=== PATIENT | male | born 1995 | race African-American/Black ===

== ENCOUNTER 2017-12-04 21:36 | Emergency (ER) | payer MEDICAID ==
[2017-12-04 21:51] VITALS: BP 139/65
[2017-12-04] MEDS: Ketorolac 30 MG/ML SDV IM ONE (22:09)
--- NOTE | 2017-12-04 22:12 | EDM.PDOC ---
ED HPI GENERAL MEDICAL PROBLEM - General Chief Complaint: Lower Extremity Injury/Pain Stated Complaint: right ankle pain Time Seen by Provider: 12/04/17 21:44 Source of Information: Reports: Patient History Limitations: Reports: No Limitations - History of Present Illness INITIAL COMMENTS - FREE TEXT/NARRATIVE: Patient comes in this evening with complaints of right ankle pain. He was playing basketball when he says that he thought he heard a pop in the right ankle. He did come in on crutches and the ankle is quite swollen. He is able to move the extremity but it is somewhat limited due to pain and swelling. Has no other complaints tonight he did not lose consciousness. Onset: Today, Sudden Location: Reports: Lower Extremity, Right Quality: Reports: Pressure, Sharp Severity: Moderate Improves with: Reports: Cold Therapy Associated Symptoms: Reports: No Other Symptoms Right Ankle Pain Score (Numeric/FACES): 7 - Related Data Allergies Allergy/AdvReac Type Severity Reaction Status Date / Time No Known Allergies Allergy Verified 12/04/17 21:48 Home Meds: Home Meds . [No Known Home Meds] 07/21/16 [History] Past Medical History - Past Health History Medical/Surgical History: Denies Medical/Surgical History - Past Surgical History Musculoskeletal Surgical History: Reports: Other (See Below) Other Musculoskeletal Surgeries/Procedures:: meniscus surgery, hand surgery Social & Family History - Family History Family Medical History: Noncontributory - Tobacco Use Smoking Status *Q: Never Smoker Second Hand Smoke Exposure: No - Caffeine Use Caffeine Use: Reports: None Review of Systems - Review of Systems Review Of Systems: See Below Constitutional: Reports: No Symptoms Eyes: Reports: No Symptoms Ears: Reports: No Symptoms Nose: Reports: No Symptoms Mouth/Throat: Reports: No Symptoms Respiratory: Reports: No Symptoms Cardiovascular: Reports: No Symptoms GI/Abdominal: Reports: No Symptoms Genitourinary: Reports: No Symptoms Musculoskeletal: Reports: Foot Pain, Joint Pain, Joint Swelling (right ankle) Skin: Reports: No Symptoms Neurological: Reports: No Symptoms Psychiatric: Reports: No Symptoms ED EXAM, GENERAL - Physical Exam Exam: See Below Exam Limited By: No Limitations General Appearance: Alert, WD/WN, Mild Distress Peripheral Pulses: 2+: Posterior Tibial (L), Posterior Tibial (R), Dorsalis Pedis (L), Dorsalis Pedis (R) Extremities: Limited Range of Motion (right ankle has reduced ROM, significant swelling to medial malleolus) Neurological: Alert, Oriented, CN II-XII Intact, Normal Cognition, Normal Gait, Normal Reflexes, No Motor/Sensory Deficits Psychiatric: Normal Affect, Normal Mood Skin Exam: Warm, Dry, Intact, Normal Color, No Rash Lymphatic: No Adenopathy Course - Vital Signs Last Recorded V/S: Last Vital Signs Temp 35.9 C 12/04/17 21:48 Pulse 68 12/04/17 21:48 Resp 16 12/04/17 21:48 BP 139/65 12/04/17 21:48 Pulse Ox 96 12/04/17 21:48 - Orders/Labs/Meds Orders: Active Orders 24 hr Category Date Time Status Ankle Min 3V Rt [CR] Stat Exams 12/04/17 21:46 Ordered Meds: Medications Discontinued Medications Generic Name Dose Route Start Last Admin Trade Name Freq PRN Reason Stop Dose Admin Ketorolac Tromethamine 30 mg 12/04/17 21:47 Toradol IM 12/04/17 21:48 ONETIME ONE - Radiology Interpretation Free Text/Narrative:: x-ray negative for acute fracture, possible anterior syndesmosis injury Departure - Departure Time of Disposition: 22:52 Disposition: Home, Self-Care 01 Condition: Good Clinical Impression: Ankle sprain - Discharge Information Instructions: Ankle Sprain, [id number] Forms: ED Department Discharge Additional Instructions: Keep your ankle compressed with the Vj wrap, elevated, as well as alternate ice and heat with it. Alternate ibuprofen and Tylenol for pain and swelling. No workouts for athletics for the next 7 days. He should try to stay off of that foot or elevated as much as possible over the next week. Return to primary care doctor in 7-10 days of swelling and pain continue. You may need to have an MRI to diagnose additional soft tissue injuries including but not limited to ligament tear, cartilage injury, as well as muscular injury. Please call the hospital with any questions or concerns. - Problem List & Annotations (1) Ankle sprain SNOMED Code(s): 32981794 Code(s): S93.409A - SPRAIN OF UNSP LIGAMENT OF UNSPECIFIED ANKLE, INIT ENCNTR Status: Acute Priority: Medium Current Visit: Yes Qualifiers: Encounter type: initial encounter Involved ligament of ankle: unspecified ligament Laterality: right Qualified Code(s): S93.401A - Sprain of unspecified ligament of right ankle, initial encounter - Problem List Review Problem List Initiated/Reviewed/Updated: Yes - My Orders Last 24 Hours: My Active Orders 12/04/17 21:46 Ankle Min 3V Rt [CR] Stat - Assessment/Plan Last 24 Hours: My Active Orders 12/04/17 21:46 Ankle Min 3V Rt [CR] Stat Assessment:: right ankle sprain involving anterior syndesmosis Plan: Keep your ankle compressed with the Vj wrap, elevated, as well as alternate ice and heat with it. Alternate ibuprofen and Tylenol for pain and swelling. No workouts for athletics for the next 7 days. He should try to stay off of that foot or elevated as much as possible over the next week. Return to primary care doctor in 7-10 days of swelling and pain continue. You may need to have an MRI to diagnose additional soft tissue injuries including but not limited to ligament tear, cartilage injury, as well as muscular injury. Please call the hospital with any questions or concerns.
== END 2017-12-04 23:00 | disposition home or self-care (01) ==
LOC: VM.ED 21:36
DX: S93.401A Sprain of unspecified ligament of right ankle, initial encounter (principal); Y93.67 Activity, basketball
CPT/HCPCS: 73610-RT; 99283; J1885